=== PATIENT | male | born 1970 | race Two or more races ===

== ENCOUNTER 2023-07-22 17:13 | Inpatient (IN) | payer SELFPAY ==
[~2023-07-22] VITALS: Ht 165.1 cm; Wt 68.8 kg
[2023-07-22 17:50] LABS: Basophils # (auto) 0.1 10 ^3/uL (0-0.2); Basophils % (auto) 0.7 % (0.0-2.0); Eosinophils # (auto) 0.1 10 ^3/uL (0-0.8); Eosinophils % (auto) 1.3 % (0.0-7.0); Hematocrit 45.2 % (41.0-53.0); Hemoglobin 15.1 g/dL (13.5-17.5); Lymphocytes # (auto) 1.1 10 ^3/uL (0.4-5.4); Lymphocytes % (auto) 14.9 % (10.0-50.0); Mean Corpuscular Hemoglobin 29.2 pg (28.0-32.0); Mean Corpuscular Hgb Conc. 33.4 g/dL (32.0-36.0); Mean Corpuscular Volume 87.4 fL (80.0-100.0); Monocytes # (auto) 0.4 10 ^3/uL (0-1.3); Monocytes % (auto) 5.4 % (0.0-12.0); Neutrophils # (auto) 5.9 10 ^3/uL (1.6-8.6); Neutrophils % (auto) 77.7 % (37.0-80.0); Nucleated Red Blood Cells % 0.1 %; Red Blood Cells 5.17 10^6/uL (4.5-5.90); Red Cell Distribution Width 15.3 % (11.8-14.3); White Blood Cell 7.6 10^3/uL (4.4-10.8)
[2023-07-22 18:14] LABS: Alanine Aminotransferase 74 U/L (7-40); Albumin 4.4 g/dL (3.2-4.8); Alkaline Phosphatase 51 U/L (46-116); Anion Gap 10 (5-15); Aspartate Aminotransferase 39 U/L (13-40); BUN/Creatinine Ratio 9.6 (10.0-20.0); Bilirubin, Total 1.5 mg/dL (0.2-1.0); Blood Urea Nitrogen 17 mg/dL (9-23); Carbon Dioxide 21 mmol/L (20-30); Chloride 109 mmol/L (98-107); Glucose 113 mg/dL (74-106); Potassium 3.3 mmol/L (3.5-5.1); Sodium 140 mmol/L (136-145)
[2023-07-22 18:15] LABS: Total Protein 6.4 g/dL (5.7-8.2)
[2023-07-22 22:10] LABS: Urine Bacteria NONE SEEN /hpf (None Seen); Urine Blood Negative /uL (Negative); Urine Clarity Clear (Clear); Urine Color Yellow (Yellow); Urine Hyaline Cast FEW /lpf (0 - 2); Urine Mucus FEW (None Seen); Urine Protein, UAD 3+ (Negative); Urine Specific Gravity 1.033 (1.001-1.035); Urine Urobilinogen Normal (Negative); Urine WBC 2 /hpf (0 - 3); Urine pH 5.5 (5.0-8.0)
[2023-07-22] MEDS ORDERED: POTASSIUM EFFERVESENT TAB 25 MEQ PO ONE (22:30)
[2023-07-22] MEDS ORDERED: FUROSEMIDE 40 MG/4 ML VIAL IV ONE (22:30)
[2023-07-22] MEDS ORDERED: ONDANSETRON HCL 4 MG/2 ML VIAL IV PRN (23:00)
[2023-07-22] MEDS ORDERED: ACETAMINOPHEN 325 MG TAB PO PRN (23:00)
[2023-07-22] MEDS ORDERED: HYDROcodone-ACET 5/325MG TAB PO PRN (23:00)
[2023-07-22] MEDS ORDERED: DOCUSATE SOD 100 MG CAP PO PRN (23:00)
[2023-07-22] MEDS ORDERED: NITROGLYCERIN 0.4 MG SL TAB SL PRN (23:30)
[2023-07-22] MEDS ORDERED: MORPHINE SULFATE INJ 2 MG/ml SYRG IV PRN (23:30)
[2023-07-22] MEDS ORDERED: IBUPROFEN 600 MG TAB PO PRN (23:45)
[2023-07-23] VITALS (7 sets, daily range): BP systolic 129–167; BP diastolic 88–123; PULSE 89–101; RESP 16–50; TEMP 97.5–98.3; O2SAT 95–98
[2023-07-23] MEDS: POTASSIUM CHL 20MEQ/100ML 100 ML IV SCH ×2 (01:22→03:35)
[2023-07-23 06:02] LABS: Basophils # (auto) 0.1 10 ^3/uL (0-0.2); Basophils % (auto) 0.8 % (0.0-2.0); Eosinophils # (auto) 0.1 10 ^3/uL (0-0.8); Hemoglobin 14.9 g/dL (13.5-17.5); Lymphocytes # (auto) 1.3 10 ^3/uL (0.4-5.4); Lymphocytes % (auto) 18.4 % (10.0-50.0); Mean Corpuscular Hemoglobin 29.6 pg (28.0-32.0); Mean Corpuscular Hgb Conc. 33.9 g/dL (32.0-36.0); Mean Corpuscular Volume 87.3 fL (80.0-100.0); Monocytes # (auto) 0.4 10 ^3/uL (0-1.3); Neutrophils # (auto) 5.1 10 ^3/uL (1.6-8.6); Neutrophils % (auto) 73.8 % (37.0-80.0); Nucleated Red Blood Cells % 0.1 %; Red Blood Cells 5.04 10^6/uL (4.5-5.90); Red Cell Distribution Width 15.3 % (11.8-14.3); White Blood Cell 6.9 10^3/uL (4.4-10.8)
[2023-07-23] MEDS: SODIUM CHLOR 0.9% PF (SALINE LOCK) 10ML VIAL/SYR IV SCH ×3 (06:18→22:45)
[2023-07-23 06:24] LABS: Alanine Aminotransferase 70 U/L (7-40); Albumin 4.4 g/dL (3.2-4.8); Alkaline Phosphatase 48 U/L (46-116); Anion Gap 10 (5-15); Aspartate Aminotransferase 31 U/L (13-40); Bilirubin, Total 1.6 mg/dL (0.2-1.0); Blood Urea Nitrogen 19 mg/dL (9-23); Calcium 8.9 mg/dL (8.7-10.4); Carbon Dioxide 23 mmol/L (20-30); Chloride 109 mmol/L (98-107); Glucose 105 mg/dL (74-106); Potassium 3.6 mmol/L (3.5-5.1); Sodium 142 mmol/L (136-145); Total Protein 6.3 g/dL (5.7-8.2)
[2023-07-23] MEDS ORDERED: ASPirin 325 MG TAB PO ONE (07:00)
[2023-07-23] MEDS ORDERED: NIFEdipine ER 30 MG TAB PO ONE (09:30)
[2023-07-23] MEDS: ATORVASTATIN 20 MG TAB PO SCH ×2 (09:39→22:46)
[2023-07-23] MEDS ORDERED: FUROSEMIDE 40 MG/4 ML VIAL IV SCH (10:00)
[2023-07-23] MEDS ORDERED: CARVEDILOL 3.125 MG TAB PO SCH (10:00)
[2023-07-23] MEDS ORDERED: CARV6.25 PO (10:17)
[2023-07-23] MEDS ORDERED: AML5T PO (10:17)
[2023-07-23 10:55] LABS: Magnesium 1.6 mg/dL (1.6-2.6)
[2023-07-23] MEDS: ASPirin 81 mg TAB PO SCH (11:03)
[2023-07-23] MEDS: FUROSEMIDE 40 MG/4 ML VIAL IV SCH ×2 (11:06→22:45)
[2023-07-23] MEDS ORDERED: guaiFENesin-DM 100/10mg/5ml SYR PO PRN (15:30)
[2023-07-23] MEDS ORDERED: hydrALAZINE HCL 20 MG/ML VL IV PRN (15:30)
[2023-07-23] MEDS ORDERED: ATORVASTATIN 20 MG TAB PO SCH (22:00)
[2023-07-23] MEDS: CARVEDILOL 3.125 MG TAB PO SCH (22:47)
[2023-07-24] VITALS (7 sets, daily range): BP systolic 104–142; BP diastolic 63–95; PULSE 63–84; RESP 14–19; TEMP 97.5–98.4; O2SAT 97–98
[2023-07-24 06:46] LABS: Basophils # (auto) 0.1 10 ^3/uL (0-0.2); Basophils % (auto) 0.9 % (0.0-2.0); Eosinophils # (auto) 0.1 10 ^3/uL (0-0.8); Hematocrit 41.9 % (41.0-53.0); Hemoglobin 14.6 g/dL (13.5-17.5); Lymphocytes # (auto) 1.2 10 ^3/uL (0.4-5.4); Lymphocytes % (auto) 16.2 % (10.0-50.0); Mean Corpuscular Hemoglobin 29.9 pg (28.0-32.0); Mean Corpuscular Hgb Conc. 34.9 g/dL (32.0-36.0); Mean Corpuscular Volume 85.9 fL (80.0-100.0); Monocytes # (auto) 0.4 10 ^3/uL (0-1.3); Monocytes % (auto) 5.9 % (0.0-12.0); Neutrophils # (auto) 5.4 10 ^3/uL (1.6-8.6); Nucleated Red Blood Cells % 0.1 %; Red Blood Cells 4.88 10^6/uL (4.5-5.90); Red Cell Distribution Width 15.2 % (11.8-14.3); White Blood Cell 7.3 10^3/uL (4.4-10.8)
[2023-07-24 06:49] LABS: Calcium 9.1 mg/dL (8.7-10.4); Chloride 104 mmol/L (98-107); Sodium 139 mmol/L (136-145)
[2023-07-24 06:50] LABS: Anion Gap 8 (5-15); Carbon Dioxide 27 mmol/L (20-30)
[2023-07-24 06:55] LABS: BUN/Creatinine Ratio 11.8 (10.0-20.0); Blood Urea Nitrogen 18 mg/dL (9-23); Glucose 141 mg/dL (74-106)
[2023-07-24] MEDS: SODIUM CHLOR 0.9% PF (SALINE LOCK) 10ML VIAL/SYR IV SCH ×3 (06:55→22:14)
[2023-07-24] MEDS: EMPAGLIFLOZIN 10 MG TAB PO SCH (06:55)
[2023-07-24 07:06] LABS: Uric Acid 11.4 mg/dL (3.7-9.2)
[2023-07-24 08:00] LABS: Urine Bacteria NONE SEEN /hpf (None Seen); Urine Blood Negative /uL (Negative); Urine Clarity Clear (Clear); Urine Color Yellow (Yellow); Urine Protein, UAD Negative (Negative); Urine Specific Gravity 1.015 (1.001-1.035); Urine Urobilinogen Normal (Negative); Urine WBC 1 /hpf (0 - 3); Urine pH 5.5 (5.0-8.0)
[2023-07-24 08:09] LABS: Protein, Urine 7.2 mg/dL (0.0-11.9)
[2023-07-24 08:12] LABS: Creatinine, Urine 112.69 mg/dL (30.0-125.0)
[2023-07-24 08:21] LABS: Amphetamine Screen, Urine Neg (NEGATIVE); Barbiturate Scree,Urine Neg (NEGATIVE); Benzodiazephine Screen, Urine Neg (NEGATIVE); Cannabinoid Screen, Urine Neg (NEGATIVE); Cocaine Screen, Urine Neg (NEGATIVE); Opiate Scree,Urine Neg (NEGATIVE); Phencyclidine Screen, Urine Neg (NEGATIVE)
[2023-07-24] MEDS ORDERED: POTASSIUM CHL 20 Meq TABLET PO ONE (09:00)
[2023-07-24] MEDS: ASPirin 81 mg TAB PO SCH (09:11)
[2023-07-24] MEDS: CARVEDILOL 3.125 MG TAB PO SCH ×2 (09:12→22:14)
[2023-07-24] MEDS: SPIRONOLACTONE 25 MG TAB PO SCH (09:12)
[2023-07-24] MEDS: FUROSEMIDE 40 MG/4 ML VIAL IV SCH ×2 (09:13→22:14)
[2023-07-24] MEDS: LISINOPRIL 10 MG TAB PO SCH (09:22)
[2023-07-24] MEDS ORDERED: LISINOPRIL 10 MG TAB PO SCH (10:00)
[2023-07-24] MEDS: ATORVASTATIN 20 MG TAB PO SCH (22:13)
[2023-07-25 05:00] VITALS: BP 115/80; PULSE 78; RESP 14; TEMP 97.9; O2SAT 97
[2023-07-25 05:57] LABS: Basophils # (auto) 0.1 10 ^3/uL (0-0.2); Basophils % (auto) 0.7 % (0.0-2.0); Eosinophils # (auto) 0.1 10 ^3/uL (0-0.8); Eosinophils % (auto) 2.1 % (0.0-7.0); Hematocrit 44.9 % (41.0-53.0); Hemoglobin 15.2 g/dL (13.5-17.5); Lymphocytes # (auto) 1.3 10 ^3/uL (0.4-5.4); Lymphocytes % (auto) 19.5 % (10.0-50.0); Mean Corpuscular Hemoglobin 29.4 pg (28.0-32.0); Mean Corpuscular Hgb Conc. 33.8 g/dL (32.0-36.0); Mean Corpuscular Volume 87.1 fL (80.0-100.0); Monocytes # (auto) 0.5 10 ^3/uL (0-1.3); Monocytes % (auto) 7.1 % (0.0-12.0); Neutrophils # (auto) 4.9 10 ^3/uL (1.6-8.6); Neutrophils % (auto) 70.6 % (37.0-80.0); Nucleated Red Blood Cells % 0.1 %; Red Blood Cells 5.16 10^6/uL (4.5-5.90); Red Cell Distribution Width 15.2 % (11.8-14.3); White Blood Cell 6.9 10^3/uL (4.4-10.8)
[2023-07-25 05:59] LABS: Anion Gap 10 (5-15); Carbon Dioxide 26 mmol/L (20-30); Chloride 103 mmol/L (98-107); Potassium 3.2 mmol/L (3.5-5.1); Sodium 139 mmol/L (136-145)
[2023-07-25 06:01] LABS: Calcium 9.3 mg/dL (8.7-10.4)
[2023-07-25 06:05] LABS: BUN/Creatinine Ratio 13.4 (10.0-20.0); Blood Urea Nitrogen 23 mg/dL (9-23); Glucose 97 mg/dL (74-106)
[2023-07-25 06:07] LABS: Phosphorus 5.8 mg/dL (2.4-5.1)
[2023-07-25 06:13] LABS: Uric Acid 10.5 mg/dL (3.7-9.2)
[2023-07-25] MEDS: SODIUM CHLOR 0.9% PF (SALINE LOCK) 10ML VIAL/SYR IV SCH ×2 (06:19→14:00)
[2023-07-25] MEDS: EMPAGLIFLOZIN 10 MG TAB PO SCH (06:20)
[2023-07-25] MEDS ORDERED: POTASSIUM CHL 20 Meq TABLET PO ONE (07:15)
[2023-07-25 08:00] VITALS: PULSE 76; PULSE 78; RESP 18; O2SAT 100
[2023-07-25 08:59] VITALS: BP 127/89; PULSE 76; RESP 18; TEMP 98.4; O2SAT 100
[2023-07-25] MEDS: LISINOPRIL 10 MG TAB PO SCH (10:00)
[2023-07-25] MEDS: CARVEDILOL 3.125 MG TAB PO SCH (10:39)
[2023-07-25] MEDS: SPIRONOLACTONE 25 MG TAB PO SCH (10:40)
[2023-07-25] MEDS: ASPirin 81 mg TAB PO SCH (10:40)
[2023-07-25] MEDS: FUROSEMIDE 40 MG/4 ML VIAL IV SCH (10:41)
[2023-07-25] MEDS ORDERED: FURO40TA4 PO (11:21)
[2023-07-25] MEDS ORDERED: ATOR20TA50 PO (11:21)
[2023-07-25] MEDS ORDERED: SPIR25TA PO (11:21)
[2023-07-25] MEDS ORDERED: CARV12.544 PO (11:21)
[2023-07-25] MEDS ORDERED: LISI10TA34 PO (11:21)
[2023-07-25] MEDS ORDERED: EMPA1TAB PO (11:21)
[2023-07-25 13:07] VITALS: BP 128/93; PULSE 79; RESP 18; TEMP 99; O2SAT 98
[2023-07-25 14:39] VITALS: BP 125/83; PULSE 78; RESP 18; TEMP 37.2; O2SAT 100
== END 2023-07-25 15:50 | disposition home or self-care (01) | DRG 280 ==
LOC: ER 17:13 → TELE 23:17 → TELE-WESTW 07-23 10:03
PROVIDERS: ADMIT Internal Medicine
DX: I13.0 Hypertensive heart and chronic kidney disease with heart failure and stage 1 through stage 4 chronic kidney disease, or unspecified chronic kidney disease (principal); I50.43 Acute on chronic combined systolic (congestive) and diastolic (congestive) heart failure; I21.A1 Myocardial infarction type 2; N17.0 Acute kidney failure with tubular necrosis; I16.1 Hypertensive emergency; E66.9 Obesity, unspecified; I42.0 Dilated cardiomyopathy; I95.9 Hypotension, unspecified; E87.6 Hypokalemia; N18.9 Chronic kidney disease, unspecified; Z82.49 Family history of ischemic heart disease and other diseases of the circulatory system; Z91.199 Patient's noncompliance with other medical treatment and regimen due to unspecified reason; Z87.01 Personal history of pneumonia (recurrent); E78.5 Hyperlipidemia, unspecified; Z68.25 Body mass index [BMI] 25.0-25.9, adult; I50.814 Right heart failure due to left heart failure
CPT/HCPCS: 36415; 71045; 76775; 80048; 80053; 80061; 80307; 81001; 82306; 82570; 83036; 83690; 83735; 83880; 84100; 84132; 84156; 84300; 84443; 84484; 84550; 85025; 93005; 93306; 96361; 96365; G0378; J3480